=== PATIENT | female | born 1995 | race African-American/Black ===

== ENCOUNTER 2017-12-25 20:04 | Emergency (ER) | payer OTHER ==
--- NOTE | 2017-12-25 20:40 | ED UPPER/LOWER EXTREMITY COMPL ---
History of Present Illness General Chief Complaint: Hand or Wrist Injury Stated Complaint: "I THINK I SPRAG MY FINGER" Source: patient Exam Limitations: no limitations Vital Signs & Intake/Output Vital Signs & Intake/Output Vital Signs Date Time Temp Pulse Resp B/P B/P Pulse O2 O2 Flow FiO2 Mean Ox Delivery Rate 12/25 2128 97.7 79 18 113/69 97 Room Air 12/25 2035 Room Air 12/25 2015 82 20 117/75 96 Room Air Allergies Coded Allergies: No Known Allergies (12/25/17) Triage Note: PER PT WOKE UP WEDNESDAY AM WITH PAIN TO RT INDEX FINGER UNKNOWN INJURY. REPORTS DEFORMITY NO DEFORMITY NOTED LMP 1 WEEK AGO DENIES CHANCE OF NO OTC MEDS Triage Nurses Notes Reviewed? yes Onset: Gradual Duration: constant Timing: recent history Severity: mild Severity Numbers: 3 : No Patient currently breastfeeds: No HPI: Patient is a 22-year-old female who presents emergency room obtained that yesterday after waking up she had a gradual onset of right-sided index finger pain that she denies any mechanism of injury denies any trauma denies any overuse activities denies any swelling denies any paresthesia or redness Patient has not taken any medications for symptoms (Juan Boone) Past History Travel History Traveled to [place] past 21 day No Medical History Any Pertinent Medical History? see below for history Neurological: NONE EENT: NONE Cardiovascular: NONE Respiratory: asthma Gastrointestinal: NONE Hepatic: NONE Renal: NONE Musculoskeletal: NONE Psychiatric: anxiety Endocrine: NONE Surgical History Surgical History: non-contributory Psychosocial History What is your primary language Sierra Leonean Tobacco Use: Never used Family History Hx Contributory? No (Juan Boone) Review of Systems Review of Systems Constitutional: Reports: no symptoms. EENTM: Reports: no symptoms. Respiratory: Reports: no symptoms. Cardiovascular: Reports: no symptoms. Gastrointestinal/Abdominal: Reports: no symptoms. Genitourinary: Reports: no symptoms. Musculoskeletal: Reports: see HPI, joint pain. Skin: Reports: no symptoms. Neurological/Psychological: Reports: no symptoms. Hematologic/Endocrine: Reports: no symptoms. Immunological: Reports: no symptoms. All Other Systems: Reviewed and Negative (Juan Boone) Physical Exam Physical Exam General Appearance: no apparent distress, alert, comfortable Head: atraumatic Eyes: Bilateral: normal appearance. Neck: normal inspection Cardiovascular/Respiratory: no respiratory distress Peripheral Pulses: 2+ radial (R) Neurologic/Tendon: normal sensation, normal motor functions, normal tendon functions, responds to pain, no evidence tendon injury, no pulse deficit Skin: intact, normal color, warm/dry Diagram Hands Back 1) Normal inspection of finger full active range of motion dermatomes intact mild PIP point tenderness no swelling no erythema capillary refill less than 2 seconds (Juan Boone) Progress Differential Diagnosis: arterial insufficiency, compartment syndrome, contusion, dislocation, DVT, fracture, gout, septic arthritis, sprain, tendon injury Plan of Care: No concerns of fracture at this time confirms infectious process No emergent WARRANTING of x-rays (Juan Boone) Departure Departure Disposition: HOME OR SELF CARE Condition: Stable Clinical Impression Primary Impression: Finger pain, right Referrals: Unknown (PCP/Family) Additional Instructions: As discussed begin [id number]-[id number]-vjawlqi ibuprofen as directed for pain and inflammation, begin icing the area directly 20 minutes every 2 hours, if symptoms worsen return to emergency room if no better in one week follow-up with orthopedic Dr. Ocasio Departure Forms: Customer Survey General Discharge Information (Juan Boone) PA/RN RADIOLOGY Co-Sign Statement Statement: ED Attending supervision documentation- I saw and evaluated the patient. I have also reviewed all the pertinent lab results and diagnostic results. I agree with the findings and the plan of care as documented in the PA's/RN RADIOLOGY's documentation. x I have reviewed the ED Record and agree with the PA's/RN RADIOLOGY's documentation. [] Additions or exceptions (if any) to the PAs/RN RADIOLOGY's note and plan are summarized below: [] (Uzma ORDONEZ,Elton)
[2017-12-25 21:29] VITALS: BP 113/69
== END 2017-12-25 21:30 ==
LOC: ERH 20:04
DX: M79.644 Pain in right finger(s) (principal)